=== PATIENT | male | born 1995 | race Caucasian/White ===

== ENCOUNTER 2022-07-18 06:00 | Day surgery (SDC) | payer OTHER ==
[2022-07-18] MEDS ORDERED: Propofol 200 MG/20 ML SDV ONE ×2 (07:19→08:17)
[2022-07-18] MEDS ORDERED: fentaNYL 100 MCG/2 ML SDV ONE (07:24)
[2022-07-18] MEDS ORDERED: Lidocaine 2% 5 ML SDV ONE (07:24)
[2022-07-18] MEDS ORDERED: Lactated Ringers 1,000 ML IV ONE (08:00)
== END 2022-07-18 09:15 ==
LOC: MW.SDS 06:00
PROVIDERS: ATTEND Surgery
DX: K31.819 Angiodysplasia of stomach and duodenum without bleeding (principal); K31.89 Other diseases of stomach and duodenum; K62.82 Dysplasia of anus; K29.70 Gastritis, unspecified, without bleeding; K44.9 Diaphragmatic hernia without obstruction or gangrene; K64.9 Unspecified hemorrhoids; K21.9 Gastro-esophageal reflux disease without esophagitis; F17.220 Nicotine dependence, chewing tobacco, uncomplicated; Z79.899 Other long term (current) drug therapy; Z91.09 Other allergy status, other than to drugs and biological substances
CPT/HCPCS: 43239; 45380; J2704; J3010; J7120; 00813